=== PATIENT | female | born 1980 | race Hispanic/Latino ===

== ENCOUNTER 2021-02-06 22:27 | Emergency (ER) | payer OTHER ==
[~2021-02-06] VITALS: Ht 172.7 cm; Wt 78.0 kg
[2021-02-06] MEDS ORDERED: TRAZODONE HCL50 MG PO (23:21)
[2021-02-06] MEDS ORDERED: PROPRANOLOL HCL10 MG PO (23:21)
[2021-02-06] MEDS ORDERED: METRONIDAZOLE500 MG PO (23:21)
[2021-02-06] MEDS ORDERED: SODIUM CHLORIDE 0.9% 1000ML 1,000 ML IV SCH (23:30)
[2021-02-06] MEDS ORDERED: PREDNISOLO15 MG/5 ML PO (23:37)
[2021-02-06] MEDS ORDERED: DIPHENHYDR12.5 MG/5 PO (23:38)
[2021-02-06] MEDS ORDERED: FAMOTIDINE40 MG/5 ML PO (23:42)
[2021-02-06] MEDS ORDERED: CETIRIZINE1 MG/1 ML PO (23:47)
[2021-02-06] MEDS ORDERED: SODIUM CHLORIDE 0.9% 1000ML 1,000 ML ONE (23:58)
[2021-02-07] MEDS ORDERED: KETOROLAC TROMETHAMINE 30 MG/ML VIAL IV STA (00:32)
[2021-02-07] MEDS ORDERED: KETOROLAC TROMETHAMINE 30 MG/ML VIAL ONE (00:43)
[2021-02-07 00:57] VITALS: BP 11/69
== END 2021-02-07 01:01 | disposition home or self-care (01) ==
LOC: FSED 23:02
DX: S00.83XA Contusion of other part of head, initial encounter (principal); R51.9 Headache, unspecified; R42 Dizziness and giddiness; W01.198A Fall on same level from slipping, tripping and stumbling with subsequent striking against other object, initial encounter; F41.9 Anxiety disorder, unspecified; F17.210 Nicotine dependence, cigarettes, uncomplicated
CPT/HCPCS: 70450; 80053; 81003; 81025; 85025; 96374; 99284; J1885; J7030